=== PATIENT | female | born 2000 | race African-American/Black ===

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

== ENCOUNTER 2018-04-14 19:52 | Emergency (ER) | payer MEDICAID, SELFPAY ==
--- NOTE | 2018-04-14 22:20 | RAD ---
RIGHT SHOULDER THREE VIEWS: 04/14/18 COMPARISON: None. HISTORY: Pain for two months. FINDINGS: No widening of the acromioclavicular or coracoclavicular interspace. No displaced fracture or disloca tion. IMPRESSION: No acute findings. POS: [facility]
== END 2018-04-14 21:49 | disposition home or self-care (01) ==
LOC: ERS 19:52
DX: M25.511 Pain in right shoulder (principal); M25.512 Pain in left shoulder

== ENCOUNTER 2018-05-23 12:46 | Emergency (ER) | payer SELFPAY ==
[2018-05-23 13:51] LABS: Bilirubin Negative (Negative); Blood, Urine Trace (Negative); Clarity CLEAR (Clear); Glucose, Urine (Dipstick) Negative (Negative); Leukocyte Trace (Negative); Nitrite Negative (Negative); Protein, Urine (Dipstick) Negative (Neg-Trace); Specific Gravity, Urine 1.016 (1.002-1.036)
[2018-05-23 13:54] LABS: Bacteria/HPF None Seen HPF (None Seen); Hyaline Casts/LPF 0-3 HYALINE CAST LPF (0-3 Hyaline); Pathc Cast-AUWi Flag 0.29 (0-2.49); Squamous Epithelial 0-3 HPF (0-3); WBC/HPF 0-3 HPF (0-3)
[2018-05-23 13:57] LABS: Pregnancy Test - Urine (BHCG) Negative (Negative)
[2018-05-23 13:58] LABS: Pregu Control Background? CLEAR/WHITE (CLR/WHITE); Pregu Control Bar Appear? YES (CONTROL BAR); Specific Gravity 1.016 (1.002-1.036)
[2018-05-23 14:33] LABS: #Eosinphils 0.1 thou/uL (0.0-0.7); #Lymphocytes 2.2 thou/uL (1.20-3.40); #Monocytes 0.3 thou/uL (0.11-0.59); #Neutrophils 3.9 thou/uL (1.40-6.50); %Basophils 0.6 % (0.0-1.0); %Eosinophils 0.9 % (0.0-10.0); %Lymphocytes 33.5 % (28.0-48.0); %Neutrophils 60.9 % (31.0-61.0); Hemoglobin 13.7 g/dL (12.0-16.0); Mean Corpuscular HGB CONC 33.4 g/dL (32.0-36.0); Mean Corpuscular Hemoglobin 30.1 pg (25.0-35.0); Mean Corpuscular Volume 90.1 fL (78.0-98.0); Mean Platelet Volume 5.8 fL (7.4-10.4); Platelet Count 313 thou/uL (130-400); RBC Distribution Width 11.2 % (11.5-14.5); Red Blood Cell (RBC) Count 4.53 mill/uL (4.00-5.20); White Blood Cell (WBC) Count 6.4 thou/uL (4.8-10.8)
== END 2018-05-23 15:28 | disposition home or self-care (01) ==
LOC: ERS 12:46
DX: N94.6 Dysmenorrhea, unspecified (principal)
CPT/HCPCS: 36415; 81003; 81015; 81025; 85025; 99284

== ENCOUNTER 2019-02-01 09:24 | Emergency (ER) | payer SELFPAY ==
[2019-02-01 10:04] LABS: Bilirubin Negative (Negative); Blood, Urine Negative (Negative); Clarity Turbid (Clear); Glucose, Urine (Dipstick) Normal (Negative); Leukocyte Negative Leu/uL (Negative); Nitrite Negative (Negative); Protein, Urine (Dipstick) 10 mg/dL (Neg-Trace)
[2019-02-01 10:07] LABS: Pregnancy Test - Urine (BHCG) Negative (Negative); Pregu Control Background? CLEAR/WHITE (CLR/WHITE); Pregu Control Bar Appear? YES (CONTROL BAR); Specific Gravity 1.023 (1.002-1.036)
[2019-02-01 10:18] LABS: #Basophils 0.1 thou/uL (0.0-0.2); #Eosinphils 0.1 thou/uL (0.0-0.7); #Lymphocytes 2.4 thou/uL (1.20-3.40); #Monocytes 0.4 thou/uL (0.11-0.59); %Basophils 0.9 % (0.0-1.0); %Eosinophils 0.8 % (0.0-10.0); %Lymphocytes 30.2 % (28.0-48.0); %Monocytes 5.5 % (0.0-4.0); %Neutrophils 62.7 % (31.0-61.0); Hemoglobin 14.2 g/dL (12.0-16.0); Mean Corpuscular HGB CONC 33.8 g/dL (32.0-36.0); Mean Corpuscular Hemoglobin 30.3 pg (25.0-35.0); Mean Corpuscular Volume 89.8 fL (78.0-98.0); Mean Platelet Volume 6.1 fL (7.4-10.4); Platelet Count 307 thou/uL (130-400); RBC Distribution Width 11.5 % (11.5-14.5); Red Blood Cell (RBC) Count 4.69 mill/uL (4.00-5.20)
[2019-02-01] MEDS ORDERED: Ondansetron ODT 8 MG TAB ONE (10:36)
[2019-02-01] MEDS ORDERED: Acetaminophen 325 MG TAB ONE (10:36)
[2019-02-01 10:50] LABS: ALT (SGPT) 20 U/L (8-55); AST (SGOT) 16 U/L (5-34); Albumin 4.7 g/dL (3.5-5.0); Alkaline Phosphatase 70 U/L (40-150); Anion Gap 12 mmol/L (10-20); BUN (Urea Nitrogen) 10 mg/dL (7.0-18.7); Bilirubin, Total 1.8 mg/dL (0.2-1.2); Calc. Creatinine Clearance 0 mL/min (70-130); Calcium 9.7 mg/dL (7.8-10.44); Carbon Dioxide 25 mmol/L (22-29); Chloride 104 mmol/L (98-107); Estimated GFR-MDRD Greater than 90; Globulin 2.8 g/dL (2.4-3.5); Glucose 98 mg/dL (70-105); Lipase 16 U/L (8-78); Potassium 3.4 mmol/L (3.5-5.1); Protein, Total 7.5 g/dL (6.0-8.3); Sodium 138 mmol/L (136-145)
--- NOTE | 2019-02-01 12:12 | RAD ---
PORTABLE CHEST: Date: 02/01/19 HISTORY: Chest pain. COMPARISON: 08/21/17 study. FINDINGS: Heart size and mediastinum are within normal limits. Lungs are clear of infiltrates. No bony findings . IMPRESSION: No active intrathoracic disease. POS: [facility]
== END 2019-02-01 11:53 | disposition home or self-care (01) ==
LOC: ERS 09:24
DX: R10.9 Unspecified abdominal pain (principal); R07.89 Other chest pain
CPT/HCPCS: 36415; 71045; 80053; 81003; 81025; 83690; 85025; 93005

== ENCOUNTER 2019-07-09 08:15 | Emergency (ER) | payer SELFPAY ==
--- NOTE | 2019-07-09 08:49 | RAD ---
Exam: Chest one view HISTORY:Chest pain Comparison: 02/01/2019 FINDINGS: Cardiac silhouette: Normal Aorta: Unremarkable Pulmonary vessels: Normal Costophrenic angles: Clear LUNGS: No masses or consolidation. Pneumothorax: None Osseous abnormalities: None IMPRESSION: No acute cardiopulmonary process.
[2019-07-09 08:54] LABS: Hemoglobin 13.7 g/dL (12.0-16.0); Mean Corpuscular HGB CONC 33.5 g/dL (32.0-36.0); Mean Corpuscular Hemoglobin 30.6 pg (27.0-31.0); Mean Corpuscular Volume 91.4 fL (78.0-98.0); Mean Platelet Volume 6.4 fL (7.4-10.4); Platelet Count 284 thou/uL (130-400); RBC Distribution Width 11.1 % (11.5-14.5); Red Blood Cell (RBC) Count 4.49 mill/uL (4.20-5.40)
[2019-07-09 09:12] LABS: ALT (SGPT) 40 U/L (8-55); AST (SGOT) 45 U/L (5-34); Albumin 4.8 g/dL (3.5-5.0); Alkaline Phosphatase 83 U/L (40-110); Anion Gap 11 mmol/L (10-20); BUN (Urea Nitrogen) 15 mg/dL (7.0-18.7); Bilirubin, Total 1.5 mg/dL (0.2-1.2); CK (CPK) 74 U/L (29-168); Calc. Creatinine Clearance 0 mL/min (70-130); Calcium 10.1 mg/dL (7.8-10.44); Carbon Dioxide 28 mmol/L (22-29); Chloride 105 mmol/L (98-107); Estimated GFR-MDRD Greater than 90; Globulin 2.5 g/dL (2.4-3.5); Glucose 111 mg/dL (70-105); Lipase 37 U/L (8-78); Potassium 3.8 mmol/L (3.5-5.1); Protein, Total 7.3 g/dL (6.0-8.3); Sodium 140 mmol/L (136-145)
[2019-07-09 09:15] LABS: Band 13 % (5-11); Lymphocytes 3 % (21-51); MDiff Complete? YES; Neutrophil 82 % (42-75); Reactive Lymphocytes 2 % (0-10)
[2019-07-09 09:37] LABS: BHCG - Serum Negative (NEGATIVE); Pregs Control Background? CLEAR/WHITE (CLR/WHITE); Pregs Control Bar Appear? YES (CONTROL BAR)
[2019-07-09] MEDS ORDERED: Ketorolac Tromethamine 30 MG/ML VIAL ONE (10:17)
== END 2019-07-09 11:15 | disposition home or self-care (01) ==
LOC: ERS 08:15
DX: R07.9 Chest pain, unspecified (principal)
CPT/HCPCS: 36415; 71045; 80053; 82550; 83690; 84443; 84484; 84703; 85025; 85379; 93005; 94760; 96361; 96374; J1885

== ENCOUNTER 2019-12-13 14:39 | Emergency (ER) | payer OTHER, SELFPAY ==
[2019-12-14 14:03] LABS: SARS-CoV-2 MS2 Positive; SARS-CoV-2 N Gene Negative; SARS-CoV-2 S Gene Negative; SARS-CoV-2 by NAA Not Detected (NotDetected); SARS-CoV-2 orf1ab Negative
== END 2019-12-13 15:41 | disposition home or self-care (01) ==
LOC: ERS 14:39
DX: Z20.828 Contact with and (suspected) exposure to other viral communicable diseases (principal)
CPT/HCPCS: 87635; 99282; U0003

== ENCOUNTER 2020-04-12 14:44 | Outpatient (CLI) | payer OTHER ==
--- NOTE | 2020-04-12 15:18 | ULT ---
ULTRASOUND OBSTETRICAL COMPLETE: DATE: 04/12/2020 HISTORY: "Z 34.02, encounter for supervision of normal first , second trimester. Complete anatomy, si ze and dates, cervical length. " In 19-year-old female FINDINGS: Maternal adnexa: Not visualized. number: davis lie: Vertex Maternal cervix: 4 cm. Closed. Placenta: Posterior. No placenta previa. Amniotic fluid volume: LEROY = 10.5 cm heart rate: 136 bpm The following anatomy is visualized, with no evidence of anomalies: Head, cerebellum, lateral ventricles, four-chamber heart, stomach, kidneys, cord insertion, bladder, cervical spine, thoracic spine, lumbar spine, sacrum, nose and lips, upper extremities, lower extremities, and three-vessel cord. biometry: Biparietal diameter (BPD): 5.6 cm 23 w 2 d Head circumference (HC): 21.1 cm 23 w 2 d Abdominal circumference (AC): 18.8 cm 23 w 4 d Femur length (FL): 4.2 cm 23 w 5 d Average ultrasound age (AUA): 23 w 4 d Estimated date of delivery (VIKI): 08/05/2020 Estimated weight (EFW): 601 g +/- 88 g IMPRESSION: 1) Live 2nd trimester intrauterine gestation. 2) Estimated gestational age of 23 weeks, 4 days 3) Vertex lie. 4) no anatomic abnormality identified.
== END 2020-04-12 14:45 | disposition home or self-care (01) ==
LOC: BICULT 14:44
PROVIDERS: ATTEND Family Medicine
DX: Z34.02 Encounter for supervision of normal first pregnancy, second trimester (principal); Z3A.23 23 weeks gestation of pregnancy
CPT/HCPCS: 76805

== ENCOUNTER 2021-01-24 15:37 | Emergency (ER) | payer OTHER | END 2021-01-24 19:10 | disposition left against medical advice (07) | LOC: ERS 15:37 | DX: Z53.21 Procedure and treatment not carried out due to patient leaving prior to being seen by health care provider (principal) ==

== ENCOUNTER 2021-04-25 08:45 | Outpatient (CLI) | payer OTHER | END 2021-04-25 08:46 | disposition home or self-care (01) | LOC: BICULT 08:45 | PROVIDERS: ATTEND Family Medicine | DX: O09.92 Supervision of high risk pregnancy, unspecified, second trimester (principal); Z3A.19 19 weeks gestation of pregnancy | CPT/HCPCS: 76805 ==

== ENCOUNTER 2023-03-10 16:08 | Emergency (ER) | payer OTHER | END 2023-03-10 16:28 | disposition left against medical advice (07) | LOC: ERS 16:08 | DX: Z53.21 Procedure and treatment not carried out due to patient leaving prior to being seen by health care provider (principal) ==

== ENCOUNTER 2023-04-23 13:23 | Emergency (ER) | payer OTHER ==
[2023-04-23] MEDS ORDERED: traMADol HCl 50 MG TAB ONE (14:02)
== END 2023-04-23 14:22 | disposition home or self-care (01) ==
LOC: ERS 13:23
DX: K04.7 Periapical abscess without sinus (principal); I10 Essential (primary) hypertension
CPT/HCPCS: 99282

== ENCOUNTER 2024-05-06 14:08 | Emergency (ER) | payer SELFPAY | END 2024-05-06 16:15 | disposition home or self-care (01) | LOC: ERS 14:08 | DX: N83.292 Other ovarian cyst, left side (principal); I10 Essential (primary) hypertension | CPT/HCPCS: 76856 ==

== ENCOUNTER 2025-03-01 13:40 | Outpatient (CLI) | payer OTHER | END 2025-03-01 13:41 | disposition home or self-care (01) | LOC: ULT 13:40 | PROVIDERS: ATTEND Family Medicine | DX: O09.892 Supervision of other high risk pregnancies, second trimester (principal); Z3A.20 20 weeks gestation of pregnancy | CPT/HCPCS: 76805 ==